=== PATIENT | male | born 1980 | race Caucasian/White ===

== ENCOUNTER 2019-11-01 06:51 | Emergency (ER) | payer MEDICARE ==
[~2019-11-01] VITALS: Ht 175.3 cm; Wt 88.5 kg
--- NOTE | 2019-11-01 07:58 | Diagnostic Imaging Report ---
EXAMINATION: CHEST SINGLE (PORTABLE) INDICATION: ^COUGH, SOB ^[id number] ^[id number] ^Y COMPARISON: 07/19/2019 FINDINGS: AP view TUBES and LINES: None. LUNGS: Lungs are well inflated. There is no evidence of pneumonia or pulmonary edema. PLEURA: No pleural effusion or pneumothorax. HEART AND MEDIASTINUM: The cardiomediastinal silhouette is unremarkable. BONES AND SOFT TISSUES: No acute osseous lesion. Soft tissues are unremarkable. UPPER ABDOMEN: No free air under the diaphragm. IMPRESSION: No acute thoracic abnormality. Signed by: Dr. Shahzad El MD on 11/01/2019 7:54 AM
== END 2019-11-01 08:54 | disposition home or self-care (01) ==
LOC: ER 06:51
DX: R05 Cough (principal); B34.9 Viral infection, unspecified
CPT/HCPCS: 71045; 99282

== ENCOUNTER 2024-01-20 14:53 | Outpatient (RCR) | payer MEDICARE | END 2024-01-26 | LOC: OT 14:53 | PROVIDERS: ATTEND Plastic Surgery | DX: M67.431 Ganglion, right wrist (principal) ==